=== PATIENT | female | born 1950 | race Caucasian/White ===

== ENCOUNTER 2024-11-10 16:43 | Inpatient (IN) | payer OTHER, SELFPAY ==
[2024-11-10] VITALS (11 sets, daily range): BP systolic 115–149; BP diastolic 70–89; BMI 29.5
--- NOTE | 2024-11-10 14:18 | ED.GENMED ---
History of Present Illness
General
Chief Complaint: Chest Pain
Source: patient and ambulance crew
Time Seen by Provider: 11/10/24 14:18
History of Present Illness
History of Present Illness:
Note:
CHIEF COMPLAINT(S)
Chest pain.
HISTORY OF PRESENT ILLNESS
The patient is an adult female with a history of anxiety and hypertension who presented with a chief complaint of severe chest pain. The chest pain has persisted for the past week, with the most severe episode starting today at 10:00 AM. The pain is
described as stabbing, located in the mid-chest, and currently rated at 7 out of 10 in severity. She initially thought it might be due to anxiety. The pain does not radiate but is associated with shortness of breath. The patient reported that the
pain occurred both during exertion and at rest, lasting approximately 15 minutes with previous episodes. She was preparing for a [employer] soccer game when todays episode began. EMS provided pre-hospital interventions, including two sublingual
nitroglycerin tablets and two doses of fentanyl, which partially relieved her pain. Her blood pressure upon EMS arrival was elevated at 186 mmHg systolic.
The patient has no history of diabetes or stroke, denies any previous history of heart problems, and is still an active cigarette smoker. She was noted to have an abnormal electrocardiogram, suggestive of acute myocardial infarction.
ADDITIONAL HISTORY OBTAINED FROM SOURCES OTHER THAN THE PATIENT
Per EMS, upon arrival, the patient was administered nitroglycerin and fentanyl for chest pain management. The initial electrocardiogram was concerning for myocardial infarction.
CHRONIC MEDICAL CONDITIONS SIGNIFICANTLY AFFECTING CARE
Hypertension.
SOCIAL DETERMINANTS AFFECTING HEALTH
The patient experiences household stress living with her daughter and four grandchildren, contributing to occasional stress. She is a current cigarette smoker which may affect her health.
ALLERGIES
Allergic to Cefdinir (Steftin as stated by the patient).
SOCIAL HISTORY
The patient currently smokes cigarettes.
MEDICATIONS
The patient is on medication for her hypertension under the management of her family doctor.
REVIEW OF SYSTEMS
- Cardiovascular: Severe, stabbing chest pain without radiation. History of hypertension.
- Respiratory: Associated shortness of breath.
- Gastrointestinal: Vomiting noted.
- Neurological: No history of stroke or neurological deficits reported.
PHYSICAL EXAM
General: Alert, no acute distress.
Skin: Warm, dry.
Head: Normocephalic, atraumatic.
Neck: Supple, trachea midline.
Eye Ears, nose, mouth and throat: Oral mucosa moist.
Cardiovascular: Normal peripheral perfusion, no edema.
Respiratory: Respirations are non-labored.
Gastrointestinal: Abdomen non-distended.
Back: Normal range of motion, normal alignment.
Musculoskeletal: Normal range of motion, normal strength.
Neurological: Alert and oriented to person, place, time, and situation, no focal neurological deficit observed.
Psychiatric: Cooperative, appropriate mood & affect.
PROBLEM LIST
Acute Problems:
- Suspected Myocardial Infarction.
- Hypertensive urgency.
PLAN
1. The patient is to undergo emergent cardiac catheterization to evaluate for coronary artery blockage, with plans for percutaneous intervention if necessary.
2. Blood pressure management with appropriate medications.
3. Initiation of dual antiplatelet therapy with lifelong baby aspirin and a stronger antiplatelet agent for at least one year if a stent is placed.
4. Monitor and manage the patients vitals and symptoms in the coronary care unit post-procedure.
5. Address smoking cessation with counseling and supportive measures.
6. Stress management to be discussed to alleviate daily household stress.
DIFFERENTIAL DIAGNOSIS
The Differential Diagnosis includes, in no particular order and is not limited to:
1. Acute Myocardial Infarction
2. Unstable Angina
3. Aortic Dissection
4. Pulmonary Embolism
5. Pericarditis
6. Gastroesophageal Reflux Disease (GERD)
7. Costochondritis
8. Pneumothorax
9. Anxiety-Related Chest Pain
10. Pleural Effusion
EKG
My independent EKG interpretation is:
- Time of EKG: Not specified
- Rhythm: Normal sinus rhythm
- Heart Rate: Not specified
- [place] Interval: Normal
- QRS Duration: Normal
- QT Interval: Normal
- [place]: Not specified
- Abnormalities: ST elevation in leads I, AVL, and anterior leads
- Additional Findings: ST depression in inferior leads (reciprocal changes)
Disposition:
SUMMARY OF ENCOUNTER
The patient, an adult female, was seen in the emergency department for severe chest pain with suspected ST-Elevation Myocardial Infarction (STEMI), confirmed by pre-hospital electrocardiogram (EKG) findings. On arrival, the chest pain persisted,
prompting a discussion with cardiology. The patient was seen by cardiology at the bedside and scheduled for emergent cardiac catheterization. Management included administration of aspirin, nitroglycerin, ticagrelor (Brilinta), and heparin.
DISPOSITION
Admit to cardiac catheterization lab.
ASSESSMENT
Suspected acute ST-Elevation Myocardial Infarction (STEMI) requiring emergent intervention.
EMERGENCY TREATMENTS ADMINISTERED
The patient received aspirin, nitroglycerin, ticagrelor (Brilinta), and heparin.
MANAGEMENT OF THE PATIENTS CARE WAS DISCUSSED WITH
Case discussed with cardiology; the patient was seen by cardiology at the bedside.
PLAN
Emergent cardiac catheterization to assess for coronary artery blockage and perform percutaneous coronary intervention if necessary.
INDEPENDENT REVIEW OF LABS AND INTERPRETATION OF TESTS
My independent EKG interpretation is ST elevation in leads I, AVL, and anterior leads, with ST depression in inferior leads.
MEDICATION RECONCILIATION
Emergency administration included aspirin, nitroglycerin, ticagrelor (Brilinta), and heparin.
MEDICAL DECISION MAKING
- Number and Complexity of Problems Addressed: Chronic conditions affecting care include a history of anxiety and hypertension. Differential diagnosis includes acute myocardial infarction, unstable angina, aortic dissection, pulmonary embolism,
pericarditis, gastroesophageal reflux disease (GERD), costochondritis, pneumothorax, anxiety-related chest pain, and pleural effusion.
- Data:
Category 1
Clinical information was obtained from an independent historian (EMS report).
My independent interpretation of EKG shows ST elevation in leads I, AVL, and anterior leads, with ST depression in inferior leads.
Category 3
Discussion of management with cardiology.
- Risk: High risk due to suspected myocardial infarction and intervention with prescription drug management and emergent cardiac catheterization.
DIAGNOSIS
1. ST-Elevation Myocardial Infarction (STEMI) - ICD-10: I21.4
Phy Exam
Physical Exam
Physical Exam:
.
Scores
Heart Score for Chest Pain Patients
STEMI patient?: Yes
Course
Orders/Labs/Results
Orders:
Orders
11/10/24 14:18
Complete Blood Count/With Diff Urgent
Comprehensive Metabolic Panel Urgent
Magnesium Urgent
PT/INR [Prothrombin Time] Urgent
PTT Urgent
Troponin I Urgent
11/10/24 14:37
Heparin 5,000 units .ROUTE .STK-MED ONE
Ticagrelor [Brilinta] 180 mg .ROUTE .STK-MED ONE
Abnormal Lab Results
11/10/24 11/10/24 11/10/24
14:18 14:38 14:50
MCH 31.6 H pg
(27.0-31.0)
Absolute Neuts (auto) 7.2 H 10^3/uL
(1.4-6.5)
Lymphocytes % 16.2 L %
(20.5-51.1)
APTT > 200 H* Sec
(23.4-35.0)
Creatinine 0.5 L mg/dL
(0.6-1.0)
Glucose 159 H mg/dl
(70-99)
Alkaline Phosphatase 205 H U/L
(38-126)
Troponin I 0.136 H* ng/ml
POC ACT Low Range 190 H Seconds 255 H Seconds
(116-155) (116-155)
11/10/24
15:04
MCH
Absolute Neuts (auto)
Lymphocytes %
APTT
Creatinine
Glucose
Alkaline Phosphatase
Troponin I
POC ACT Low Range 358 H Seconds
(116-155)
11/10/24 14:18
11/10/24 14:18
Vital Signs
Initial and Last Documented VS:
Initial Vital Signs
Pulse Resp BP Pulse Ox
92 20 139/86 97
11/10/24 14:10 11/10/24 14:10 11/10/24 14:10 11/10/24 14:10
Last Documented Vital Signs
Temp Pulse Resp BP Pulse Ox
98.6 F 89 16 133/71 99
11/10/24 14:21 11/10/24 14:21 11/10/24 14:21 11/10/24 14:21 11/10/24 14:21
*Pulse Oximetry
SaO2: 97
Oxygen Mode of Delivery: Room air
Patient hypoxic: no
*Critical Care Note
Total Time (30-74mins, 75-104mins- exclusive of procedures): Not Applicable
ED Attending Note
-
Portions of this chart may have been created with voice recognition software.� Occasional wrong word or��sound alike� substitutions may have occurred due to the inherent limitations of voice recognition software.
Discharge Plan
Departure
Patient Disposition: Admit
Date of Disposition: 11/10/24
Time of Disposition: 14:19
Admit to: irrigation laborer
Presentation/result/management discussed w/ accepting MD/DO: cards
Discharge Problem:
ST elevation (STEMI) myocardial infarction
Interventions
Interventions:
*Risk Screen - Suicide Last Done: 11/10/24 14:21
*General Assessment Last Done: 11/10/24 14:14
*Neglect/Abuse Screening Last Done: 11/10/24 14:21
*ED- Fall Risk Assessment Last Done: 11/10/24 14:21
*ED COVID-19 Vaccine History Last Done: 11/10/24 14:21
*Nursing Disposition Last Done: 11/10/24 14:21
ED- Cardiac Assessment Last Done: 11/10/24 14:21
Discharge Date and Time
Discharge Date/Time: 11/10/24 14:34
--- NOTE | 2024-11-10 14:20 | ITS.CL.CATH ---
[facility] - Catheterization
Cardiac Catheterization
Procedure Report:
LEFT HEART CATHETERIZATION AND CORONARY INTERVENTION
Date of Procedure: November 10, 2024
Referring: [place] emergency department
PROCEDURES:
1. Left heart catheterization, coronary angiogram.
2. Moderate sedation.
3. Successful percutaneous coronary artery intervention of proximal to mid LAD up to 95% hazy stenosis (lesion type C, BILLIE II flow) with 3 overlapping Medtronic [place] frontier drug-eluting stent (2.5 x 22 mm, 3.0 x 8 mm and a 3.5 x 8 mm)
postdilated using IVUS guidance with 2.5mm NC balloon distally and 3.75mm NC balloon proximally at high pressures with an excellent angiographic and IVUS based result.
4. Intravascular ultrasound (IVUS)
INDICATION: Erika is a 74-year-old female with past medical history of hypertension, significant family history of premature coronary artery disease and current smoking (4 cigarettes a day) who presents with on and off chest discomfort for the
last week with persistent chest pain starting this morning when she was getting ready to go to her [employer] soccer game with her daughter calling EMS with a prehospital EKG showing concerns for ST elevations in the anterolateral leads with
reciprocal ST depressions in the inferior leads and therefore she was called in as a prehospital ST elevation LA. In the emergency room despite getting 2 and sublingual nitroglycerin and route she was still having 7 out of 10 chest pain. She is
hemodynamically stable. She already received 325 mg of aspirin and some fentanyl. In the emergency room she was given 5000 units of IV unfractionated heparin and 180 mg of Brilinta and after detailed informed consent was brought up to the heart
catheterization lab.
ACCESS: Right radial artery, 6Fr. sheath, under US guidance.
HEMODYNAMICS : (mmHg)
AO (s/d) : 144/78
LVEDP : 29
No significant gradient across the aortic valve to suggest aortic stenosis.
CORONARY FINDINGS
Dominance: Right
Left Main Trunk (LMT): Large caliber short vessel that gives rise to the LAD and LCx branches and is free of angiographic disease.
Left Anterior Descending Artery (LAD): Large caliber vessel that gives off 2 major diagonal branches as it courses along the anterior inter-ventricular groove before wrapping around the cardiac apex. Proximal LAD at the level of small caliber D1
has irregular plaque resulting in a 70 to 75% stenosis followed by a hazy irregular 95% stenosis in the mid LAD at the level of the takeoff of a large D2 which is thought to be the culprit. Decision was made to proceed with intervention as noted
below.
Left Circumflex Artery (LCx): Large caliber vessel that gives off 1 small to medium caliber major obtuse marginal (OM) branch as it courses along the atrio-ventricular (AV) groove. The LCx and its branches are free of angiographic disease.
Right Coronary Artery (RCA): Large caliber dominant vessel that gives rise to the posterior descending artery (RPDA) and postero-lateral ventricular (RPLV) branches distally. There is mild diffuse atherosclerotic plaque.
CORONARY INTERVENTION: The left coronary artery was selectively engaged using a 6 Italian EBU 3.0 guide catheter. Additional heparin was given to maintain a therapeutic ACT throughout the case. The lesion was carefully navigated using a 190 cm
0.014 run-through wire which was parked in the distal LAD. We predilated the lesion using a 2.5 x 12 mm semicompliant balloon. Given the significant size mismatch based on intravascular ultrasound with distal vessel at about 2.5 mm in the proximal
vessel close to 4 mm, the proximal to mid LAD were then stented with 3 overlapping Medtronic [place] frontier drug-eluting stents --2.5 x 22 mm distally, 3.0 x 8 mm proximally. Given haziness noted at the proximal stent edge a third overlapping stent
was placed to cover this area with a 3.5 x 8 mm stent. The stents were postdilated using IVUS guidance with a 2.5 mm NC balloon at high pressures distally and a 3.75 mm NC balloon proximally with an excellent angiographic result. BILLIE-3 flow was
restored into the distal LAD. Both of the diagonal branches remained widely open with BILLIE-3 flow into them. The patient was chest pain-free at the end of the case. No acute complications.
SEDATION: 67 minutes of procedural sedation was utilized. IV Midazolam and IV Fentanyl were administered. An independent medical office supervisor was present to assist with and help manage the patient's level of consciousness and physiologic status.
RADIATION SUMMARY: Fluoro Time (min): 15.6, Dose (mGy): 655.6, DAP (Gy.cm2) : 39.6
Closure Device: There were no immediate intra-procedural complications. The sheath was pulled in the microbiology laboratory manager and a vascular-band applied to the right wrist for radial artery hemostasis using the patent hemostasis technique.
CONCLUSIONS
1. Successful percutaneous coronary artery intervention of proximal to mid LAD up to 95% hazy stenosis (lesion type C, BILLIE II flow) with 3 overlapping Medtronic Napoleon frontier drug-eluting stent (2.5 x 22 mm, 3.0 x 8 mm and a 3.5 x 8 mm) postdilated
using IVUS guidance with 2.5mm NC balloon distally and 3.75mm NC balloon proximally at high pressures with an excellent angiographic and IVUS based result.
2. Elevated LVEDP at 29 mmHg.
RECOMMENDATIONS
1. Wean radial band per protocol. Monitor right hand perfusion and for bleeding from the radial site following removal of the vascular-band following trans-radial access.
2. Continue aggressive medical therapy and risk factor modification for secondary CAD prevention. Very strongly recommend and encourage complete smoking cessation.
3. Continue ASA 81 mg daily for life.
4. Continue Brilinta for at least 12 months of uninterrupted dual anti-platelet therapy given drug-eluting stent (KATIA) implantation to mitigate the risk of stent thrombosis. This is not to be stopped for any reason without the guidance of a
manager training and development.
5. Hydrate with normal saline to mitigate the risk of contrast-induced acute kidney injury. Full echocardiogram to assess biventricular function and rule out any significant valvular abnormalities.
6. Referral for outpatient cardiac rehab.
7. Outpatient cardiology follow-up.
Richa Cordova MD, [facility], [facility]
--- NOTE | 2024-11-10 14:20 | HPS.HSE ---
Family Physician
-
Family Physician: unknown
Chief Complaint
-
chest pain
History of Present Illness
Erika is a 74-year-old female with past medical history of hypertension, significant family history of premature coronary artery disease and current smoking (4 cigarettes a day) who presents with on and off chest discomfort for the last week with
persistent chest pain starting this morning when she was getting ready to go to her [employer] soccer game with her daughter calling EMS with a prehospital EKG showing concerns for ST elevations in the anterolateral leads with reciprocal ST
depressions in the inferior leads and therefore she was called in as a prehospital ST elevation [place]. In the emergency room despite getting 2 and sublingual nitroglycerin and route she was still having 7 out of 10 chest pain. She is hemodynamically
stable. She already received 325 mg of aspirin and some fentanyl. In the emergency room she was given 5000 units of IV unfractionated heparin and 180 mg of Brilinta and after detailed informed consent was brought up to the heart catheterization
lab.
Medical History
Past Medical History
Past Medical History: Reports GERD
Past Surgical History: Reports None
Social History
Tobacco: Smoker
Alcohol: Occasional
Drug: None
Personal: Other (Her daughter lives with her along with 4 grand[employer]enix [employer])
Living: With Family
Employment: Retired
Family History
Family History: Early CAD
Allergies / Home Medications
Allergies reflects when Allergies were last updated in [employer].
Home Medications with original date entered in [employer]
Allergy/Medication List:
Amlodipine 5 mg daily
Review of Systems
-
A 12 point ROS was completed and negative except as noted: Yes
Physical Exam
Vital Signs
Vital Signs
Pulse Resp BP Pulse Ox
92 20 139/86 97
11/10/24 14:10 11/10/24 14:10 11/10/24 14:10 11/10/24 14:19
Physical Exam
General: Well Developed, Well Nourished and Appears in Distress (Ongoing chest pain)
HEENT: Moist mucous membranes and PERRLA
Respiratory: Rales and Non Labored Respirations; No Crackles
Cardiac: S1/S2 and Regular Rhythm; No Murmur, Rub, Peripheral Edema, JVD or HJR
Breast: Deferred by me
GI: Soft, Non Tender, Non Distended and Normal Bowel Sounds
Musculoskeletal: No Clubbing, No Cyanosis and No Edema
Skin: Warm and Dry
Neuro: AO x 3 and Nonfocal/grossly intact
Psych: Anxious
Laboratory Results
-
Lab work was sent in the emergency room, nothing is resulted yet.
Data Reviewed
-
Medical Tests (Nuc Med, Echo, EKG etc): Image Personally Visualized and interpreted
Old Records: Reviewed
Impression/Plan
-
IMPRESSION: Erika is a 74-year-old female with past medical history of hypertension, significant family history of premature coronary artery disease and current smoking (4 cigarettes a day) who presents with on and off chest discomfort for the
last week with persistent chest pain starting this morning when she was getting ready to go to her [employer] soccer game with her daughter calling EMS with a prehospital EKG showing concerns for ST elevations in the anterolateral leads with
reciprocal ST depressions in the inferior leads and therefore she was called in as a prehospital ST elevation [place]. In the emergency room despite getting 2 and sublingual nitroglycerin and route she was still having 7 out of 10 chest pain. She is
hemodynamically stable. She already received 325 mg of aspirin and some fentanyl. In the emergency room she was given 5000 units of IV unfractionated heparin and 180 mg of Brilinta and after detailed informed consent was brought up to the heart
catheterization lab.
Anterolateral ST elevation [place] (Successful percutaneous coronary artery intervention of proximal to mid LAD up to 95% hazy stenosis with 3 overlapping Medtronic Napoleon frontier drug-eluting stent (2.5 x 22 mm, 3.0 x 8 mm and a 3.5 x 8 mm)
Hypertension
Depression/anxiety, on sertraline
Chronic joint pain for which she uses ibuprofen
Tobacco abuse
Obesity
Cath 11/10/24: Proximal LAD at the level of small caliber D1 has irregular plaque resulting in a 70 to 75% stenosis followed by a hazy irregular 95% stenosis in the mid LAD at the level of the takeoff of a large D2 which is thought to be the culprit.
Decision was made to proceed with intervention as noted below. Successful percutaneous coronary artery intervention of proximal to mid LAD up to 95% hazy stenosis (lesion type C, BILLIE II flow) with 3 overlapping Medtronic [place] frontier drug-eluting
stent (2.5 x 22 mm, 3.0 x 8 mm and a 3.5 x 8 mm) postdilated using IVUS guidance with 2.5mm NC balloon distally and 3.75mm NC balloon proximally at high pressures with an excellent angiographic and IVUS based result. LVEDP 26mmHg
PLAN:
RECOMMENDATIONS:
1. Monitor closely on telemetry for at least 48 hours. Daily EKGs. Check lipids and hemoglobin A1c to assess cardiovascular risk factors. Trend troponins to peak.
2. Continue aggressive medical therapy and risk factor modification for secondary CAD prevention. Very strongly recommend and encourage complete smoking cessation.
3. Continue daily baby aspirin and Brilinta for at least 12 months along with high intensity statin and beta-ilan as tolerated.
4. Full echocardiogram to assess biventricular function and rule out any significant valvular abnormalities.
5. Emphasize importance of a heart healthy Mediterranean type diet that is high in fiber and increase physical activity to attain a normal BMI.
6. Referral for outpatient cardiac rehab.
7. Outpatient cardiology follow-up close to discharge
Richa Cordova MD, FAC, [facility]
[2024-11-10 14:27] LABS: Hematocrit 37.9 % (37.0-47.0); Hemoglobin 13.3 g/dL (12.0-16.0); Mean Corp Hgb Conc. 35.1 g/dL (33.0-37.0); Mean Corpuscular Volume 90.0 fL (81.0-99.0); Nucleated Red Blood Cells % 0 %; Platelet Count 242 10^3/uL (130-400); Red Cell Dist. Width 12.5 % (11.5-14.5)
[2024-11-10 14:42] LABS: ACT-LR - POC 190 Seconds (116-155)
[2024-11-10 14:56] LABS: ACT-LR - POC 255 Seconds (116-155)
[2024-11-10 15:03] LABS: INR 0.96; PT 13.3 Sec (11.4-14.6)
[2024-11-10 15:04] LABS: ALT (SGPT) 21 U/L (0-35); AST (SGOT) 27 U/L (14-36); Albumin 4.3 g/dl (3.5-5.0); Alkaline Phosphatase 205 U/L (38-126); Blood Urea Nitrogen 14 mg/dl (7-17); Calcium 8.8 mg/dl (8.4-10.2); Carbon Dioxide 26 mmol/L (22-30); Chloride 107 mmol/L (98-107); Estimated Creatinine Clearance 75 ml/min; Glucose 159 mg/dl (70-99); Magnesium 1.9 mg/dl (1.6-2.3); Potassium 3.8 mmol/L (3.5-5.1); Sodium 140 mmol/L (135-145); Total Protein 7.1 g/dl (6.3-8.2); eGFR > 60.00
[2024-11-10 15:10] LABS: Troponin I 0.136 ng/ml
[2024-11-10 15:13] LABS: ACT-LR - POC 358 Seconds (116-155)
[2024-11-10 15:21] LABS: APTT > 200 Sec (23.4-35.0)
[2024-11-10 15:34] LABS: ACT-LR - POC 355 Seconds (116-155)
[2024-11-10 17:41] LABS: ACT-LR - POC 245 Seconds (116-155)
[2024-11-10 19:16] LABS: Troponin I 12.300 ng/ml
[2024-11-10] MEDS: HEPARIN SC (20:28)
[2024-11-10] MEDS: CRESTOR 40 MG PO (20:36)
[2024-11-10] MEDS: TYLENOL 650 MG PO (20:37)
[2024-11-10] MEDS: BRILINTA 90 MG PO (20:37)
[2024-11-10] MEDS: LASIX 20 MG IV (20:38)
[2024-11-10] MEDS: TOPROL XL 12.5 MG PO (22:54)
[2024-11-10] MEDS: KCL 20 MEQ PO (22:54)
--- NOTE | 2024-11-10 23:25 | PTCARENOTE ---
assumed care of patient at the change of shift. family at the bedside. AAOx3. complained of some mild, sternal chest pain- 04/09. patient states much improved since coming into hospital. EKG completed. Tylenol given- see mar. improved pain after
Tylenol dose- 0. educated patient to inform RN with any new pain overnight. R radial band removed with no issues. gauze/teg applied. IV lasix given per order. ambulating to the bathroom, steady. bp stable. HR SR/ST 90s-low 100s. increasing rates
at rest. updated Ed Margaret CV PA. 20 PO K and 12.5 toprol given, see mar. HR currently 98. bp 128/83. R radial site intact. offers no complaints at this time. call powell within reach. makes needs known.
[2024-11-11 01:37] LABS: Troponin I 13.900 ng/ml
[2024-11-11 04:24] VITALS: BP 128/79
[2024-11-11 04:29] VITALS: BMI 28.0
[2024-11-11 07:27] LABS: Hematocrit 38.2 % (37.0-47.0); Hemoglobin 13.4 g/dL (12.0-16.0); Mean Corp Hgb Conc. 35.1 g/dL (33.0-37.0); Mean Corpuscular Volume 89.0 fL (81.0-99.0); Nucleated Red Blood Cells % 0 %; Platelet Count 255 10^3/uL (130-400); Red Cell Dist. Width 12.5 % (11.5-14.5)
[2024-11-11 07:44] LABS: Blood Urea Nitrogen 14 mg/dl (7-17); Calcium 8.9 mg/dl (8.4-10.2); Carbon Dioxide 28 mmol/L (22-30); Chloride 105 mmol/L (98-107); Estimated Creatinine Clearance 73 ml/min; Glucose 107 mg/dl (70-99); HDL Cholesterol 56 mg/dl; LDL Cholesterol, Calculated 96 mg/dl; Magnesium 2.0 mg/dl (1.6-2.3); Potassium 4.0 mmol/L (3.5-5.1); Sodium 139 mmol/L (135-145); Very Low Density Lipoprotein 33 mg/dl (0-30); eGFR > 60.00
[2024-11-11 07:57] LABS: Troponin I 6.890 ng/ml
[2024-11-11 08:08] VITALS: BP 117/73
[2024-11-11] MEDS: HEPARIN SC ×2 (08:37→10:09)
[2024-11-11] MEDS: LOW STRENGTH ASPIRIN 81 MG PO (08:37)
[2024-11-11] MEDS: BRILINTA 90 MG PO ×2 (08:37→19:26)
[2024-11-11] MEDS: TOPROL XL 25 MG PO (08:37)
[2024-11-11 08:52] LABS: Glycohemoglobin (HgbA1c) 5.3 % (4.0-5.6)
--- NOTE | 2024-11-11 11:02 | W.PN.CARDCBS ---
Today's Communication / Plan
-
Post STEMI supportive care and medical optimization with telemetry monitoring, serial EKGs, echocardiogram today.
Impression / Plan
-
IMPRESSION: Erika is a 74-year-old female with past medical history of hypertension, significant family history of premature coronary artery disease and current smoking (4 cigarettes a day) who presents with on and off chest discomfort for the
last week with persistent chest pain starting this morning when she was getting ready to go to her [employer] soccer game with her daughter calling EMS with a prehospital EKG showing concerns for ST elevations in the anterolateral leads with
reciprocal ST depressions in the inferior leads and therefore she was called in as a prehospital ST elevation NV. In the emergency room despite getting 2 and sublingual nitroglycerin and route she was still having 7 out of 10 chest pain. She is
hemodynamically stable. She already received 325 mg of aspirin and some fentanyl. In the emergency room she was given 5000 units of IV unfractionated heparin and 180 mg of Brilinta and after detailed informed consent was brought up to the heart
catheterization lab 11/10/[address] elevation NV (Successful percutaneous coronary artery intervention of proximal to mid LAD up to 95% hazy stenosis with 3 overlapping Medtronic [place] frontier drug-eluting stent (2.5 x 22 mm, 3.0 x 8 mm and a 3.5 x 8 mm)
Hypertension
Depression/anxiety, on sertraline
Chronic joint pain for which she uses ibuprofen
Tobacco abuse
Obesity
Cath 11/10/24: Proximal LAD at the level of small caliber D1 has irregular plaque resulting in a 70 to 75% stenosis followed by a hazy irregular 95% stenosis in the mid LAD at the level of the takeoff of a large D2 which is thought to be the culprit.
Decision was made to proceed with intervention as noted below. Successful percutaneous coronary artery intervention of proximal to mid LAD up to 95% hazy stenosis (lesion type C, BILLIE II flow) with 3 overlapping Medtronic [place] frontier drug-eluting
stent (2.5 x 22 mm, 3.0 x 8 mm and a 3.5 x 8 mm) postdilated using IVUS guidance with 2.5mm NC balloon distally and 3.75mm NC balloon proximally at high pressures with an excellent angiographic and IVUS based result. LVEDP 26mmHg
Plan:
Anterolateral STEMI with prehospital Activation of lab nurse
-peak troponin 13.9
-Successful percutaneous coronary artery intervention of proximal to mid LAD up to 95% hazy stenosis with 3 overlapping Medtronic [place] frontier drug-eluting stent (2.5 x 22 mm, 3.0 x 8 mm and a 3.5 x 8 mm) 11/10/24
-Left circumflex free of angiographic disease and dominant RCA with mild diffuse atherosclerotic plaque.
-LVEDP 29; received IV Lasix 20 mg IV following procedure. Will hold off on further Lasix at this time.
-Hemodynamically stable overnight with no further chest pain lying supine without symptoms of shortness of breath.
-Continue post NV supportive care and telemetry monitoring with optimization of medical therapy and initiation of cardiac rehab
-Continue uninterrupted dual antiplatelet therapy with aspirin and Brilinta
-Blood pressure stable�continue metoprolol succinate 25 mg daily
-LDL 96. Continue new rosuvastatin with plan for outpatient repeat lipid profile in 3 months. Goal LDL 55 to 60 mg/dL
-Check hemoglobin A1c
-Echocardiogram today
-Cardiac rehab consult
-Tobacco cessation strongly advised and discussed quit plan. Nicotine patch ordered.
-Patient lives in [facility] likely follow-up with cardiology through [facility] which may be closer.
Progress Note - Marketing Researcher
Subjective
Date of Service: November 11, 2024
Seen and examined. Lying supine and denies chest pain or shortness of breath. Reviewed presentation, cardiac catheterization, cath findings and short-term plan.
Objective
Labs:
11/11/24 07:09
11/11/24 07:09
Labs
Hgb 13.4 g/dL (12.0-16.0) 11/11/24 07:09
Hct 38.2 % (37.0-47.0) 11/11/24 07:09
Plt Count 255 10^3/uL (130-400) 11/11/24 07:09
PT 13.3 Sec (11.4-14.6) 11/10/24 14:18
INR 0.96 11/10/24 14:18
APTT > 200 Sec (23.4-35.0) H* 11/10/24 14:18
Sodium 139 mmol/L (135-145) 11/11/24 07:09
Potassium 4.0 mmol/L (3.5-5.1) 11/11/24 07:09
BUN 14 mg/dl (7-17) 11/11/24 07:09
Creatinine 0.5 mg/dL (0.6-1.0) L 11/11/24 07:09
Glucose 107 mg/dl (70-99) H 11/11/24 07:09
Troponins
11/10/24 11/10/24 11/11/24
14:18 18:40 00:59
Troponin I 0.136 H* 12.300 H* D 13.900 H*
11/11/24
07:09
Troponin I 6.890 H* D
Vital Signs and I&O:
Vital Signs
Temp Pulse Resp BP Pulse Ox
98.2 F 89 20 117/73 95
11/11/24 08:10 11/11/24 10:45 11/11/24 08:10 11/11/24 08:37 11/11/24 08:10
Vital Signs
Temp Pulse Resp BP Pulse Ox
98.2 F 89 20 117/73 95
11/11/24 08:10 11/11/24 10:45 11/11/24 08:10 11/11/24 08:37 11/11/24 08:10
Intake & Output
11/09/24 11/10/24 11/11/24 11/12/24
06:59 06:59 06:59 06:59
Intake Total 550 / 550 480 / 480
Output Total 1850 / 1850
Balance -1300 / -1300 480 / 480
Physical Exam
Physical Exam
General: No acute distress, AAOX3
Neck: Negative JVD
Heart: Regular, Negative S3 positive S1/S2, Negative S4, No murmur
Lungs: CTA b/l, negative wheezes/rales/rhonchi
Abd: Positive BS, NT/ND, neg rebound/rigidity/guarding
Ext: No edema. Right radial site intact with mild bruising
Neuro: nonfocal
[2024-11-11 12:24] VITALS: BP 120/76
[2024-11-11] MEDS: NICODERM TRANSDERMAL 14 MG TRANSDERM (12:53)
[2024-11-11 16:01] VITALS: BP 98/63
--- NOTE | 2024-11-11 16:59 | PTCARENOTE ---
pt sr on the monitor, hr in the 80s, vss. pt c/o of feeling as though she may want a cigarette. notified Zoie Gupta, ordered patch and placed as ordered. pts right radial is CDI. pt denies CP/SOB. Pt educated on plan of care and pt verbalized
understanding. call powell within reach.
[2024-11-11] MEDS: CRESTOR 40 MG PO (17:26)
[2024-11-11 18:24] VITALS: BP 126/76
[2024-11-11] MEDS: TYLENOL 650 MG PO (18:54)
[2024-11-11] MEDS: HEPARIN 5000 UNITS SC (19:26)
--- NOTE | 2024-11-11 21:11 | PTCARENOTE ---
received patient at the change of shift. AAOx3. independent in the room. denies any cp/sob. R radial site intact. SR/ST on tele 80s-low 100s. reviewed plan of care with patient and verbalized understanding. LUE nicotine patch present. call powell
within reach. educated to call RN with any changes.
[2024-11-11 22:17] VITALS: BP 105/61
[2024-11-12 04:50] VITALS: BP 95/78
[2024-11-12 05:33] LABS: Blood Urea Nitrogen 18 mg/dl (7-17); Calcium 8.9 mg/dl (8.4-10.2); Carbon Dioxide 29 mmol/L (22-30); Chloride 108 mmol/L (98-107); Estimated Creatinine Clearance 63 ml/min; Glucose 105 mg/dl (70-99); Potassium 4.2 mmol/L (3.5-5.1); Sodium 141 mmol/L (135-145); eGFR > 60.00
[2024-11-12 07:14] VITALS: BP 125/81
[2024-11-12] MEDS: NICODERM TRANSDERMAL 14 MG TRANSDERM (07:36)
[2024-11-12] MEDS: HEPARIN 5000 UNITS SC ×2 (07:37→19:23)
[2024-11-12] MEDS: TYLENOL 650 MG PO ×2 (07:37→19:31)
[2024-11-12] MEDS: TOPROL XL 25 MG PO (07:38)
[2024-11-12] MEDS: LOW STRENGTH ASPIRIN 81 MG PO (07:38)
[2024-11-12] MEDS: BRILINTA 90 MG PO (07:39)
[2024-11-12 08:08] VITALS: BMI 27.9
[2024-11-12 11:03] VITALS: BP 112/70
--- NOTE | 2024-11-12 11:29 | CM ---
Reviewed chart. Met with [employer] [employer] to review discharge plans. She states prior to admission she resides with her spouse, daughter and grandchildren in a two story home. with to enter. She states she has a full flight of steps to get to
bedroom/full bathroom. She states she has a powder room on the first floor. She states prior to admission she was independent with ambulation and adls. 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 She states she does not have
any DME in the home. She states she has a prescription with [facility]. Telephone call to [facility] ( ) to check on co-pay. She has a $225.00 that only $23.00 has been met. So her first prescription would be $201.39, after she mets her
deductible her co-pay would be $47.00 a month. Telephone call to her [facility] to see if they have Brilinta in stock. They do not. Telephone call to [facility] in [place] to see if they have Brilinta 90 mg po in stock. [facility] pharmacy on [address] has Brlinta in stock. Reviewed cost with Mrs. Grimm. She states she does not feel she can afford the cost of Brilinta. Will let the medical team know. Medical work-up in progress. The discharge plan is to return home with her spouse
and family when medically stable.
--- NOTE | 2024-11-12 12:34 | W.PN.CARDCBS ---
Addendum entered and electronically signed by Zoie Martinez DO 11/12/24 15:23:
I saw and examined the patient.
The Teletypesetter Monitor's note was reviewed and I agree with the note.
Comment: Patient was seen and examined. Offers no complaints�no chest pain or pressure.
General: No acute distress, AAOX3
Neck: Negative JVD
Heart: Regular, positive S1/S2, No murmur
Lungs: CTA b/l, negative wheezes/rales/rhonchi
Abd: Positive BS, NT/ND, neg rebound/rigidity/guarding
Ext: No edema. Right radial site intact with mild bruising
Neuro: nonfocal
Plan:
Anterolateral STEMI with prehospital Activation of label cutter
-peak troponin 13.9
-Successful percutaneous coronary artery intervention of proximal to mid LAD up to 95% hazy stenosis with 3 overlapping Medtronic Napoleon frontier drug-eluting stent (2.5 x 22 mm, 3.0 x 8 mm and a 3.5 x 8 mm) 11/10/24
-Left circumflex free of angiographic disease and dominant RCA with mild diffuse atherosclerotic plaque.
-LVEDP 29; received IV Lasix 20 mg IV following procedure. Will hold off on further Lasix at this time.
-Hemodynamically stable overnight with no further chest pain lying supine without symptoms of shortness of breath.
-Echocardiogram 11/11/2024: LVEF 40%, wall motion abnormalities consistent with LAD infarct, normal RV size and function, small anterior pericardial effusion.
-Continue post OH supportive care and telemetry monitoring with optimization of medical therapy and initiation of cardiac rehab
-Continue uninterrupted dual antiplatelet -will transition from aspirin/Brilinta to aspirin/Plavix due to cost. Plavix load tomorrow morning with transition.
-start GDMT for new LV dysfxn post OH. On Toprol 25 mg daily. Start Losartan 25 mg daily.
-LDL 96. Continue new rosuvastatin with plan for outpatient repeat lipid profile in 3 months. Goal LDL 55 to 60 mg/dL
-hemoglobin A1c 5.3
-Cardiac rehab consult
-Tobacco cessation strongly advised and discussed quit plan. Nicotine patch ordered.
-Patient lives in [facility] likely follow-up with cardiology through [facility] which may be closer.
- Anticipate discharge home tomorrow
Original Note:
Today's Communication / Plan
-
-change from Brilinta to Plavix
-start GDMT
-plans to f/u at [facility] given closer proximity to home.
Impression / Plan
-
IMPRESSION: Erika is a 74-year-old female with past medical history of hypertension, significant family history of premature coronary artery disease and current smoking (4 cigarettes a day) who presents with on and off chest discomfort for the
last week with persistent chest pain starting this morning when she was getting ready to go to her [employer] soccer game with her daughter calling EMS with a prehospital EKG showing concerns for ST elevations in the anterolateral leads with
reciprocal ST depressions in the inferior leads and therefore she was called in as a prehospital ST elevation OH. In the emergency room despite getting 2 and sublingual nitroglycerin and route she was still having 7 out of 10 chest pain. She is
hemodynamically stable. She already received 325 mg of aspirin and some fentanyl. In the emergency room she was given 5000 units of IV unfractionated heparin and 180 mg of Brilinta and after detailed informed consent was brought up to the heart
catheterization lab 11/10/[address] elevation OH (Successful percutaneous coronary artery intervention of proximal to mid LAD up to 95% hazy stenosis with 3 overlapping Medtronic Napoleon frontier drug-eluting stent (2.5 x 22 mm, 3.0 x 8 mm and a 3.5 x 8 mm)
Hypertension
Depression/anxiety, on sertraline
Chronic joint pain for which she uses ibuprofen
Tobacco abuse
Obesity
ischemic cardiomyopathy, LVEF 40% post OH 11/11/2024
Cath 11/10/24: Proximal LAD at the level of small caliber D1 has irregular plaque resulting in a 70 to 75% stenosis followed by a hazy irregular 95% stenosis in the mid LAD at the level of the takeoff of a large D2 which is thought to be the culprit.
Decision was made to proceed with intervention as noted below. Successful percutaneous coronary artery intervention of proximal to mid LAD up to 95% hazy stenosis (lesion type C, BILLIE II flow) with 3 overlapping Medtronic Napoleon frontier drug-eluting
stent (2.5 x 22 mm, 3.0 x 8 mm and a 3.5 x 8 mm) postdilated using IVUS guidance with 2.5mm NC balloon distally and 3.75mm NC balloon proximally at high pressures with an excellent angiographic and IVUS based result. LVEDP 26mmHg
Plan:
Anterolateral STEMI with prehospital Activation of label cutter
-peak troponin 13.9
-Successful PCI/stent of prox-mid LAD up to 95% hazy stenosis with 3 overlapping Medtronic [place] frontier drug-eluting stent (2.5 x 22 mm, 3.0 x 8 mm and a 3.5 x 8 mm) 11/10/24
-Left circumflex free of angiographic disease and dominant RCA with mild diffuse atherosclerotic plaque.
-LVEDP 29; received IV Lasix 20 mg IV following procedure. Will hold off on further Lasix at this time.
-remained hemodynamically stable overnight, no CP or SOB
-Continue post OH supportive care and telemetry monitoring with optimization of medical therapy and initiation of cardiac rehab
-Continue uninterrupted dual antiplatelet therapy-
-Brilinta not affordable and will switch to clopidogrel with 600 mg loading dose in a.m. 11/13/2024 and then clopidogrel 75 mg daily starting 11/14/2024. Continue aspirin 81 mg daily
-Blood pressure stable�continue metoprolol succinate 25 mg daily
-LDL 96. Continue new rosuvastatin with plan for outpatient repeat lipid profile in 3 months. Goal LDL 55 to 60 mg/dL
-hemoglobin A1c 5.3
-Echocardiogram 11/11/2024: LVEF 40%, wall motion abnormalities consistent with LAD infarct, normal RV size and function, small anterior pericardial effusion.
-start GDMT for new LV dysfxn post OH. On Toprol 25 mg daily. Start Losartan 25 mg daily.
-Cardiac rehab consult
-Tobacco cessation strongly advised and discussed quit plan. Nicotine patch ordered.
-Patient lives in [facility] likely follow-up with cardiology through [facility] which may be closer.
Progress Note - Software Engineering Supervisor
Subjective
Date of Service: November 12, 2024
-denies CP/SOB
-anxious for discharge
Objective
Labs:
11/11/24 07:09
11/12/24 04:50
Labs
Hgb 13.4 g/dL (12.0-16.0) 11/11/24 07:09
Hct 38.2 % (37.0-47.0) 11/11/24 07:09
Plt Count 255 10^3/uL (130-400) 11/11/24 07:09
PT 13.3 Sec (11.4-14.6) 11/10/24 14:18
INR 0.96 11/10/24 14:18
APTT > 200 Sec (23.4-35.0) H* 11/10/24 14:18
Sodium 141 mmol/L (135-145) 11/12/24 04:50
Potassium 4.2 mmol/L (3.5-5.1) 11/12/24 04:50
BUN 18 mg/dl (7-17) H 11/12/24 04:50
Creatinine 0.7 mg/dL (0.6-1.0) 11/12/24 04:50
Glucose 105 mg/dl (70-99) H 11/12/24 04:50
Troponins
11/10/24 11/10/24 11/11/24
14:18 18:40 00:59
Troponin I 0.136 H* 12.300 H* D 13.900 H*
11/11/24
07:09
Troponin I 6.890 H* D
Vital Signs and I&O:
Vital Signs
Temp Pulse Resp BP Pulse Ox
97.6 F 93 15 125/81 97
11/12/24 11:01 11/12/24 11:01 11/12/24 11:01 11/12/24 07:38 11/12/24 11:01
Vital Signs
Temp Pulse Resp BP Pulse Ox
97.6 F 93 15 125/81 97
11/12/24 11:01 11/12/24 11:01 11/12/24 11:01 11/12/24 07:38 11/12/24 11:01
Intake & Output
11/10/24 11/11/24 11/12/24 11/13/24
06:59 06:59 06:59 06:59
Intake Total 550 / 550 930 / 930 480 / 480
Output Total 1850 / 1850 250 / 250
Balance -1300 / -1300 680 / 680 480 / 480
Physical Exam
Physical Exam
GEN: No distress, awake, Ox3
HEENT: supple, anicteric, mmm
LUNGS: CTA, no wheezes/rales
CV: Reg, S1/S2, no murmur
ABD: soft, BS+, NT/ND
EXT: No edema
NEURO: Gross non-focal
SKIN: No rash
--- NOTE | 2024-11-12 13:15 | PN.CDI ---
CDI
- -
CDI:
Physician Documentation Request
Admit Date: 11/10/24 16:43
Dear Doctor/BRAZING MACHINE OPERATOR AUTOMATIC,
Please review the following and provide your response in the progress notes.
Clinical Indicators:
Pt admitted with Acute STEMI now s//p Cardiac cath and stenting
Cardiac cath ,'Elevated LVEDP at 29 mmHg....'
Cardiology progress notes 11/11&11/12, ' LVEDP 29; received IV Lasix 20 mg IV following procedure. Will hold off on further Lasix at this time....Echocardiogram 11/11/2024: LVEF 40%...'
Please provide a diagnosis for the above findings/IV Lasix use:
Acute Systolic CHF
Elevated LVEDP only
Other ( please specify)
Use of terms such as suspected, likely, concern for, or probable (associated with a specific diagnosis that is being evaluated, monitored, or treated as if it exists) are acceptable and can be coded in the inpatient setting, when documented at the
time of discharge.
Thank you,
Rosamaria Murillo RN
CDI Specialist
[place] [employer]
Please use your independent medical judgment in providing your response.
[2024-11-12 15:59] VITALS: BP 112/73
[2024-11-12] MEDS: CRESTOR 40 MG PO (16:29)
[2024-11-12] MEDS: COZAAR 25 MG PO (16:29)
[2024-11-12 18:37] VITALS: BP 124/72
--- NOTE | 2024-11-12 19:13 | PTCARENOTE ---
received patient at the change of shift. AAOx3. independent in the room. denies any cp/sob. R radial site BOBBI, CDI. pt denies pain at site. SR/ST on tele 80s-low 100s. reviewed plan of care with patient and verbalized understanding. RUE nicotine
patch present. call powell within reach. educated to call RN with any changes.
[2024-11-12 22:21] VITALS: BP 105/66
[2024-11-12] MEDS: ZOLOFT 100 MG PO (22:23)
--- NOTE | 2024-11-12 23:53 | PTCARENOTE ---
Tele monitor remains NSR, HR in the 80-90's at rest. Pt denies any chest pain, but does c/o Left lower back discomfort. PRN Tylenol administered at 19:31. Pt reports good relief post med administration. Right radial site BOBBI w/ positive pulse. Pt
aware of activity restrictions. Ambulates self in room. Pt AAOx4 and can make needs known. Call powell in reach.
[2024-11-13 03:48] VITALS: BP 109/68
[2024-11-13 04:03] VITALS: BMI 28.0
[2024-11-13 04:11] LABS: Hematocrit 36.5 % (37.0-47.0); Hemoglobin 12.6 g/dL (12.0-16.0); Mean Corp Hgb Conc. 34.5 g/dL (33.0-37.0); Mean Corpuscular Volume 89.9 fL (81.0-99.0); Platelet Count 229 10^3/uL (130-400); Red Cell Dist. Width 12.3 % (11.5-14.5)
[2024-11-13 04:36] LABS: Blood Urea Nitrogen 22 mg/dl (7-17); Calcium 9.1 mg/dl (8.4-10.2); Carbon Dioxide 30 mmol/L (22-30); Chloride 107 mmol/L (98-107); Estimated Creatinine Clearance 73 ml/min; Glucose 101 mg/dl (70-99); Sodium 141 mmol/L (135-145); eGFR > 60.00
[2024-11-13 04:43] LABS: Potassium 4.1 mmol/L (3.5-5.1)
[2024-11-13 07:32] VITALS: BP 119/71
--- NOTE | 2024-11-13 09:17 | W.PN.CARDCBS ---
Addendum entered and electronically signed by BARRETT Blanca 11/13/24 16:31:
pt with elevated LVEDP on [facility] and treated with one time dose Lasix 20 mg IV. Pt denies SOB and was euvolemic on exam.
Addendum entered and electronically signed by Kyle Pathak MD 11/13/24 12:43:
I saw and examined the patient.
The EARLY CHILDHOOD SPECIALIST or PA's note was reviewed and I agree with the note.
Comment: General: Well developed, well nourished in NAD.
Neck: Supple, no JVD, HJR, carotids +2 B/L, no bruits bilaterally.
Heart: Non displaced PMI, RRR, no murmurs, No S3, S4, no rubs.
Lungs: Clear to auscultation bilaterally, no wheeze, rhonchi, rubs bilaterally,
normal expiratory phase.
Extremities: No clubbing, cyanosis or edema bilaterally.
Neuro: Grossly nonfocal, awake, alert and oriented x3.
Stable cardiology status for discharge. She will follow-up with [facility] as she lives in that area
Original Note:
Today's Communication / Plan
-
Remains chest pain-free status post anterolateral STEMI s/p KATIA of LAD with 3 overlapping stents 11/10/2024
- Changed to Plavix/aspirin today
Okay for discharge
Follow-up being arranged with [facility]
Impression / Plan
-
IMPRESSION: Erkia is a 74-year-old female with past medical history of hypertension, significant family history of premature coronary artery disease and current smoking (4 cigarettes a day) who presents with on and off chest discomfort for the
last week with persistent chest pain starting this morning when she was getting ready to go to her [employer] soccer game with her daughter calling EMS with a prehospital EKG showing concerns for ST elevations in the anterolateral leads with
reciprocal ST depressions in the inferior leads and therefore she was called in as a prehospital ST elevation RI. In the emergency room despite getting 2 and sublingual nitroglycerin and route she was still having 7 out of 10 chest pain. She is
hemodynamically stable. She already received 325 mg of aspirin and some fentanyl. In the emergency room she was given 5000 units of IV unfractionated heparin and 180 mg of Brilinta and after detailed informed consent was brought up to the heart
catheterization lab 11/10/[address] elevation RI (Successful percutaneous coronary artery intervention of proximal to mid LAD up to 95% hazy stenosis with 3 overlapping Medtronic Napoleon frontier drug-eluting stent (2.5 x 22 mm, 3.0 x 8 mm and a 3.5 x 8 mm)
Hypertension
Depression/anxiety, on sertraline
Chronic joint pain for which she uses ibuprofen
Tobacco abuse
Obesity
ischemic cardiomyopathy, LVEF 40% post RI 11/11/2024
Cath 11/10/24: Proximal LAD at the level of small caliber D1 has irregular plaque resulting in a 70 to 75% stenosis followed by a hazy irregular 95% stenosis in the mid LAD at the level of the takeoff of a large D2 which is thought to be the culprit.
Decision was made to proceed with intervention as noted below. Successful percutaneous coronary artery intervention of proximal to mid LAD up to 95% hazy stenosis (lesion type C, BILLIE II flow) with 3 overlapping Medtronic Napoleon frontier drug-eluting
stent (2.5 x 22 mm, 3.0 x 8 mm and a 3.5 x 8 mm) postdilated using IVUS guidance with 2.5mm NC balloon distally and 3.75mm NC balloon proximally at high pressures with an excellent angiographic and IVUS based result. LVEDP 26mmHg
Plan:
Anterolateral STEMI with prehospital Activation of laboratory chemical assistant
-peak troponin 13.9
-Successful PCI/stent of prox-mid LAD up to 95% hazy stenosis with 3 overlapping Medtronic [place] frontier drug-eluting stent (2.5 x 22 mm, 3.0 x 8 mm and a 3.5 x 8 mm) 11/10/24
-Left circumflex free of angiographic disease and dominant RCA with mild diffuse atherosclerotic plaque.
-LVEDP 29; received IV Lasix 20 mg IV following procedure. Will hold off on further Lasix at this time.
-remained hemodynamically stable overnight, no CP or SOB
-Continue post RI supportive care and telemetry monitoring with optimization of medical therapy and initiation of cardiac rehab
-Continue uninterrupted dual antiplatelet therapy- Brilinta not affordable and will switched to clopidogrel with 600 mg loading dose in a.m. 11/13/2024 and then clopidogrel 75 mg daily starting 11/14/2024. Continue aspirin 81 mg daily
-Blood pressure stable�continue metoprolol succinate 25 mg daily
-LDL 96. Continue new rosuvastatin with plan for outpatient repeat lipid profile in 3 months. Goal LDL 55 to 60 mg/dL
-hemoglobin A1c 5.3
-Echocardiogram 11/11/2024: LVEF 40%, wall motion abnormalities consistent with LAD infarct, normal RV size and function, small anterior pericardial effusion.
-start GDMT for new LV dysfxn post RI. On Toprol 25 mg daily. Started Losartan 25 mg daily 11/12/2024
-Cardiac rehab consult
-Tobacco cessation strongly advised and discussed quit plan. Nicotine patch ordered.
-Patient lives in [facility] follow-up with cardiology through [facility] - I called their office and established chart for pt - office will call patient's daughter Flaquita with new patient appointment to be within next 2 weeks. Flaquita [phone]
Progress Note - Gluer Machine Setup Operator
Subjective
Date of Service: November 13, 2024
No chest pain or shortness of breath
Blood pressure stable status post initiation of losartan
Objective
Labs:
11/13/24 04:00
11/13/24 04:00
Labs
Hgb 12.6 g/dL (12.0-16.0) 11/13/24 04:00
Hct 36.5 % (37.0-47.0) L 11/13/24 04:00
Plt Count 229 10^3/uL (130-400) 11/13/24 04:00
PT 13.3 Sec (11.4-14.6) 11/10/24 14:18
INR 0.96 11/10/24 14:18
APTT > 200 Sec (23.4-35.0) H* 11/10/24 14:18
Sodium 141 mmol/L (135-145) 11/13/24 04:00
Potassium 4.1 mmol/L (3.5-5.1) 11/13/24 04:00
BUN 22 mg/dl (7-17) H 11/13/24 04:00
Creatinine 0.6 mg/dL (0.6-1.0) 11/13/24 04:00
Glucose 101 mg/dl (70-99) H 11/13/24 04:00
Troponins
11/10/24 11/10/24 11/11/24
14:18 18:40 00:59
Troponin I 0.136 H* 12.300 H* D 13.900 H*
11/11/24
07:09
Troponin I 6.890 H* D
Vital Signs and I&O:
Vital Signs
Temp Pulse Resp BP Pulse Ox
97.9 F 84 18 109/68 100
11/13/24 07:32 11/13/24 07:32 11/13/24 07:32 11/13/24 03:48 11/13/24 07:32
Vital Signs
Temp Pulse Resp BP Pulse Ox
97.9 F 84 18 109/68 100
11/13/24 07:32 11/13/24 07:32 11/13/24 07:32 11/13/24 03:48 11/13/24 07:32
Intake & Output
11/11/24 11/12/24 11/13/24 11/14/24
06:59 06:59 06:59 06:59
Intake Total 550 / 550 930 / 930 840 / 840
Output Total 1850 / 1850 250 / 250
Balance -1300 / -1300 680 / 680 840 / 840
Physical Exam
Physical Exam
GEN: No distress, awake, Ox3
HEENT: supple, anicteric, mmm
LUNGS: CTA, no wheezes/rales
CV: Reg, S1/S2, no murmur
ABD: soft, BS+, NT/ND
EXT: No edema
NEURO: Gross non-focal
SKIN: No rash
[2024-11-13] MEDS: PLAVIX 600 MG PO (09:23)
[2024-11-13] MEDS: LOW STRENGTH ASPIRIN 81 MG PO (09:23)
[2024-11-13] MEDS: HEPARIN 5000 UNITS SC (09:23)
[2024-11-13] MEDS: TOPROL XL 25 MG PO (09:23)
[2024-11-13] MEDS: COZAAR 25 MG PO (09:24)
[2024-11-13] MEDS: NICODERM TRANSDERMAL 14 MG TRANSDERM (09:24)
--- NOTE | 2024-11-13 09:45 | PTCARENOTE ---
received patient this am sitting in chair waiting for breakfast. monitor shows NSR, VSS. Nicotine patch placed on left upper arm and the other one removed from right upper arm. patient does want to quit smoking. right radial BOBBI, good pulse. patient
was loaded with 600mg of Plavix.
--- NOTE | 2024-11-13 09:49 | W.DS.TRANS ---
DC Summary - [employer]
-
Discharge Instructions:
Discharge Diagnosis/Procedures Anterior lateral ST elevation [place] status post
PTCA and stenting of LAD with 3 overlapping drug
-eluting stents. Also with new LV dysfunction
on echocardiogram.
Diet 2 Gram Sodium,Restrict fluids to 48 oz
Activity As tolerated
Driving Restrictions No driving for 24 hours
Bathing Restrictions OK to Shower
Other Services Cardiac Rehab
Specialty Instructions Weigh Daily
Instructions:
Stand-Alone Forms: DC Instructions- Cath/EP Lab
Changes to Home Medications: Yes
Discharge Medications:
DC Medications w/original date entered in [employer]
cyclobenzaprine 10 mg tablet 10 mg PO HS PRN muscle spasm 11/11/24
gabapentin 300 mg capsule 300 mg PO BID 11/11/24
sertraline 100 mg tablet 100 mg PO DAILY 11/11/24
aspirin 81 mg chewable tablet 81 mg PO DAILY Heart disease/condition #30 tabs 11/13/24
clopidogrel 75 mg tablet 75 mg PO DAILY #30 tabs 11/13/24
losartan 25 mg tablet 25 mg PO DAILY Heart Failure #30 tabs 11/13/24
metoprolol succinate 25 mg tablet,extended release 24 hr 25 mg PO DAILY Heart disease/condition #30 tabs 11/13/24
nicotine 14 mg/24 hr daily transdermal patch 14 mg transdermal DAILY #7 ea 11/13/24
rosuvastatin 20 mg tablet 40 mg (2 x 20 mg) PO QPM High cholesterol #30 tabs 11/13/24
Home Medication Changes
new meds: aspirin, clopidogrel, losartan, metoprolol, rosuvastatin, nicotine patch
Pending Results: No
Total time spent discharging patient (in min): 30
[2024-11-13 11:20] VITALS: BP 115/74
--- NOTE | 2024-11-13 11:58 | CM ---
Reviewed chart. Met with Mrs. Grimm to review discharge plans. She states she is feeling well and maybe able to go home soon. Prior to admission she resides with her spouse, daughter and grandchildren in a two story home. with two enter. She has a
full flight of steps to get to bedroom/full bathroom. She has a powder room on the first floor. Prior to admission she was independent with ambulation and adls. 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 She does not have any
DME in the home. She has a prescription with [employer]. Medical work-up in progress. The discharge plan is to return home with her spouse and family when medically stable.
--- NOTE | 2024-11-13 12:33 | PTCARENOTE ---
D/C instructions given to patient and daughter, both verbalizes understanding. INT D/C';d, telemetry D/C'd, personal belongings packed and sent with patient. D/C to home via wc accompanied by staff.
--- NOTE | 2024-11-13 14:36 | W.PN.UPDATE ---
Update Note
Progress Note Update
Discharge summary dictated, #[id number]
== END 2024-11-13 12:45 | disposition home or self-care (01) | DRG 322 ==
LOC: IVU 16:43
PROVIDERS: Internal Medicine Cardiovascular Disease; Nurse Practitioner; ADMITTING PHYSICIAN Internal Medicine Interventional Cardiology; EMERGENCY PHYSICIAN Emergency Medicine
PROC: B2111ZZ Fluoroscopy of Multiple Coronary Arteries using Low Osmolar Contrast (ICD-10-PCS; 2024-11-10)
PROC: 027036Z Dilation of Coronary Artery, One Artery with Three Drug-eluting Intraluminal Devices, Percutaneous Approach (ICD-10-PCS; 2024-11-10)
PROC: 4A023N7 Measurement of Cardiac Sampling and Pressure, Left Heart, Percutaneous Approach (ICD-10-PCS; 2024-11-10)
DX: I21.09 ST elevation (STEMI) myocardial infarction involving other coronary artery of anterior wall (principal); I31.39 Other pericardial effusion (noninflammatory); I25.10 Atherosclerotic heart disease of native coronary artery without angina pectoris; I10 Essential (primary) hypertension; F32.A Depression, unspecified; F41.9 Anxiety disorder, unspecified; E66.9 Obesity, unspecified; I25.5 Ischemic cardiomyopathy; G89.29 Other chronic pain; Z82.49 Family history of ischemic heart disease and other diseases of the circulatory system; F17.210 Nicotine dependence, cigarettes, uncomplicated; K21.9 Gastro-esophageal reflux disease without esophagitis; Z79.899 Other long term (current) drug therapy
CPT/HCPCS: 80048; 80053; 80061; 83036; 83735; 84443; 84484; 85025; 85027; 85347; 85610; 85730; 92978; 93005; 93306; 93458; 99152; 99153; 99284; 99406; C1725; C1753; C1769; C1874; C1887; C1894; C9606; Q9967